=== PATIENT | male | born 1980 | race Caucasian/White ===

== ENCOUNTER 2021-02-08 16:06 | Emergency (ER) | payer OTHER, SELFPAY ==
--- NOTE | 2021-02-08 16:00 | RT.EKG_ITS ---
APPROVED REPORT Exam: Resting ECG Reason for Exam: dizziness Patient Location: E HR:74 bpm ECG Measurements Heart Rate 74 AXIS MT 171 P 20 QRSd 134 QRS -68 QT 411 T -29 QTc 457 Conclusion Sinus rhythm...normal P axis, V-rate 60- 99 RBBB and LAFB...QRSd >120mS, axis(-40,240). Sinus. RBBB. No STEMI. I have reviewed and interpreted ECG and agree with software generated interpretation.
[2021-02-08 16:13] VITALS: BP 136/91; PULSE 72; RESP 18; O2SAT 98
[2021-02-08 16:41] LABS: Abs Immature Grans 0.01 10^3/uL (0.0-0.06); Absolute Basophil Count 0.02 10^3/uL (0.0-0.2); Absolute Eosinophil Count 0.05 10^3/uL (0.0-0.7); Absolute Monocyte Count 0.33 10^3/uL (0.1-0.8); Absolute Neutrophil Count 4.06 10^3/uL (1.2-6.7); Basophils % 0.3; Eosinophils % 0.8; HCT 43.4 % (40.0-50.0); HGB 14.7 g/dL (13.5-17.5); Immature Grans % 0.2; Lymphocytes % 25.1; MCH 30.3 pg (27.0-33.0); MCHC 33.9 % (32.0-36.0); MCV 89.5 fL (80-95); MPV 9.5 fL (8.0-11.0); Monocytes % 5.5; Neutrophils % 68.1; Nucleated RBC 0 %; Platelet Count 259 10^3/uL (130-400); RBC 4.85 10^6/uL (4.36-5.78); RDW 12.9 % (11.8-14.1); RDW-SD 42.7 fL; WBC 5.97 10^3/uL (4.4-10.8)
[2021-02-08 16:47] VITALS: RESP 16
[2021-02-08] MEDS: Meclizine 25 MG TAB PO (16:47)
[2021-02-08] MEDS: Normal Saline 1,000 ML 1000 ML IV (16:47)
--- NOTE | 2021-02-08 16:53 | W.ED.GENAD ---
Discharge Plan Disposition Patient Disposition: HOME Condition: Improving Discharge Details Clinical Impression: Vertigo Primary Care Provider: Unknown,Unknown ED Provider: Dawn Self Home Meds and New Rx's Prescriptions: New meclizine 25 mg tablet 25 mg PO TID PRNQty: 10 RF: 0 Discharge Instructions Instructions: Vertigo (ED) Additional Instructions: continue meclizine if needed for dizziness present to ED for new or worsening symptoms Referrals: Unknown,Unknown [Primary Care Provider] - (pcp ora) Discharge Data Discharge Date/Time-TO BE ENTERED AT DEPARTURE: 02/08/21 18:38 Medical Decision Making patient presents with sudden onset of dizziness, visual disturbance non specific and tongue numbness. denies similar history. Medical Records Medical records reviewed: Yes I reviewed the patient's medical records. Imaging Data Radiologic Study: Imaging: CT Scan Radiologist's impression: Exam(s) PROCEDURE INFORMATION: Exam: CT Angiography Head With Contrast, Arteriography Exam date and time: 02/08/2021 4:45 PM Age: 40 years old Clinical indication: Other: Dizziness, tongue numb, visual disturbance TECHNIQUE: Imaging protocol: Computed tomography angiography of the head with contrast. Exam focused on the arteries. 3D rendering (Not supervised by radiologist): MIP and/or 3D reconstructed images were created by the technologist. Contrast material: OMNIPAQUE 350; Contrast volume: 100 ml; Contrast route: INTRAVENOUS (IV); COMPARISON: No relevant prior studies available. FINDINGS: ANTERIOR CIRCULATION: Right internal carotid artery: Unremarkable. Intracranial segment is patent with no significant stenosis. No aneurysm. Right middle cerebral artery: Unremarkable. No occlusion or significant stenosis. No aneurysm. Right anterior cerebral artery: Unremarkable. No occlusion or significant stenosis. No aneurysm. Left internal carotid artery: Unremarkable. Intracranial segment is patent with no significant stenosis. No aneurysm. Left middle cerebral artery: Unremarkable. No occlusion or significant stenosis. No aneurysm. Left anterior cerebral artery: Unremarkable. No occlusion or significant stenosis. No aneurysm. POSTERIOR CIRCULATION: Right vertebral artery: Unremarkable. No occlusion or significant stenosis. No aneurysm. Left vertebral artery: Unremarkable. No occlusion or significant stenosis. No aneurysm. Basilar artery: Unremarkable. No occlusion or significant stenosis. No aneurysm. Right posterior cerebral artery: Unremarkable. No occlusion or significant stenosis. No aneurysm. Left posterior cerebral artery: Unremarkable. No occlusion or significant stenosis. No aneurysm. Brain: No definite mass, mass effect, or midline shift. Cerebral ventricles: No ventriculomegaly. Bones/joints: Unremarkable. No acute fracture. Soft tissues: Unremarkable. IMPRESSION: No evidence for acute intracranial vascular abnormality. No central occlusion. PROCEDURE INFORMATION: Exam: CT Angiography Neck With Contrast Exam date and time: 02/08/2021 4:45 PM Age: 40 years old Clinical indication: Other: Dizziness, tongue numb, visual disturbance TECHNIQUE: Imaging protocol: Computed tomography angiography of the neck with contrast. 3D rendering (Not supervised by radiologist): MIP and/or 3D reconstructed images were created by the technologist. Contrast material: OMNIPAQUE 350; Contrast volume: 100 ml; Contrast route: INTRAVENOUS (IV); COMPARISON: No relevant prior studies available. FINDINGS: Right common carotid artery: No stenosis. No dissection or occlusion. Right internal carotid artery: No stenosis of the extracranial segment. No dissection or occlusion. Right external carotid artery: No occlusion or stenosis of the origin. Left common carotid artery: No stenosis. No dissection or occlusion. Left internal carotid artery: No stenosis of the extracranial segment. No dissection or occlusion. Left external carotid artery: No occlusion or stenosis of the origin. Right vertebral artery: No stenosis. No dissection or occlusion. Left vertebral artery: No stenosis. No dissection or occlusion. Soft tissues: Normal. No significant soft tissue swelling. Bones/joints: No acute fracture. IMPRESSION: No evidence for hemodynamically significant stenosis. No dissection or occlusion. The REFERENCES: NASCET CRITERIA. The degree of internal carotid artery stenosis is based on NASCET criteria. Normal is no stenosis. Mild is less than 50% stenosis. Moderate is 50-69% stenosis. Severe is 70% to 99% stenosis. Total occlusion is no detectable patent lumen. Dictated and Authenticated by: Orquidea Kim MD. Ordering:SARAH Seymour MD Lab Data Lab results reviewed: Yes I reviewed the patient's lab results. Labs: Laboratory Results - last 24 hr 02/08/21 02/08/21 02/08/21 16:26 16:30 16:30 WBC 5.97 RBC 4.85 Hgb 14.7 Hct 43.4 MCV 89.5 MCH 30.3 MCHC 33.9 RDW 12.9 Plt Count 259 MPV 9.5 Immature Gran % 0.2 Neutrophils % 68.1 Lymphocytes % 25.1 Monocytes % 5.5 Eosinophils % 0.8 Basophils % 0.3 Nucleated RBC % 0 Absolute Neutrophils 4.06 Absolute Lymphocytes 1.50 Absolute Monocytes 0.33 Absolute Eosinophils 0.05 Absolute Basophils 0.02 Sodium 137 Potassium 3.6 Chloride 102 Carbon Dioxide 29.4 Anion Gap 5.6 BUN 19 H Creatinine 1.2 Estimated GFR/1.73 m2 >= 60.00 Glucose 113 H Calcium 8.6 Magnesium 2.2 Total Bilirubin 0.3 AST 16 ALT 28 Alkaline Phosphatase 56 Troponin I Cancelled Total Protein 7.5 Albumin 4.1 02/08/21 16:30 WBC RBC Hgb Hct MCV MCH MCHC RDW Plt Count MPV Immature Gran % Neutrophils % Lymphocytes % Monocytes % Eosinophils % Basophils % Nucleated RBC % Absolute Neutrophils Absolute Lymphocytes Absolute Monocytes Absolute Eosinophils Absolute Basophils Sodium Potassium Chloride Carbon Dioxide Anion Gap BUN Creatinine Estimated GFR/1.73 m2 Glucose Calcium Magnesium Total Bilirubin AST ALT Alkaline Phosphatase Troponin I < 0.05 Total Protein Albumin HPI General Date/Time Provider Initiated Documentation: 02/08/21 16:09. Limitations to Documentation: no limitations. Information obtained by: patient. HPI Narrative: while driving up from [place] developed sudden onset of dizziness, visual disturbance and tongue numbness, prompting him to stop driving as he felt unsafe to drive. His symptoms improved some and he proceeded on. They stopped to eat and after eating a subway sandwich and driving again his symptoms worsened again. he denies chest pain, shortness of breath, nausea or diaphoresis, he had no confusion, unilateral weakness or other c/o. He has had no similar episode. he states he has been in his usual state of health with no recent illness. He saw his pcp yesterday for longstanding left sided chest pain that worsens when he lies on it. he reports rib xray were negative. Related Data Home Medications Medication Instructions Recorded Confirmed meclizine 25 mg PO TID PRN #10 tab 02/08/21 Previous Rx's Medication Instructions Recorded meclizine 25 mg PO TID PRN #10 tab 02/08/21 Allergies Allergy/AdvReac Type Severity Reaction Status Date / Time No Known Allergies Allergy Unverified 02/08/21 16:19 General Stated Complaint: Dizzy/Sync JANETH: 3 Review of Systems All systems reviewed & are unremarkable except as noted in HPI and below PFSH Active Problem List (Updated 02/08/21 @ 18:18 by Dawn Self NP) Vertigo (Acute) Social History Smoking/Tobacco Use Status: Never Smoking risk assessment performed?: Yes Alcohol Intake: current Alcohol Intake frequency: a few times a month Drug use: Never Substance use type: does not use Do you feel safe at home: Yes Do you feel safe in your relationship?: Yes Exam Const General: cooperative, healthy appearing, comfortable, no acute distress, well developed and well groomed Nutritional Appearance: average body habitus Orientation: alert, awake and oriented x3 HENMT Head: normal to inspection, normocephalic and atraumatic Ears: hearing grossly normal bilaterally General nose exam: external nose normal Face and sinus: normal facial exam Mouth: oral mucosae normal and tongue normal Eyes General: appearance normal, both eyes and all related structures Pupils: PERRL EOM: EOM intact bilaterally Resp Effort & Inspection: normal respiratory effort Auscultation: clear to auscultation bilaterally Cardio Rate: regular rate Rhythm: regular rhythm GI Inspection: normal to inspection Palpation: soft Auscultation: normal bowel sounds Skin General skin exam: no rashes or lesions noted Neuro General: patient alert, patient awake, patient oriented x3, gait normal, tone normal, moves all extremities, no meningeal signs and no focal motor deficits Cranial Nerves: PERRL, EOM intact bilaterally, no nystagmus and tongue midline Cognition: normal cognition Speech: speech normal Coordination: [id number] test normal, Romberg test normal, Does not sway with eyes open and rapid alternating movement UE normal Course Vital Signs Vital signs: Vital Signs Pulse 72 02/08/21 16:13 Respiratory Rate 18 02/08/21 16:13 Blood Pressure 136/91 H 02/08/21 16:13 Pulse Oximetry 98 02/08/21 16:13 Pulse 72 02/08/21 16:13 Respiratory Rate 16 02/08/21 16:47 Respiratory Effort Non-Labored 02/08/21 16:47 Respiratory Depth Normal 02/08/21 16:47 Respiratory Pattern Normal 02/08/21 16:47 Blood Pressure 136/91 H 02/08/21 16:13 Blood Pressure Position Sitting 02/08/21 16:13 Pulse Oximetry 98 02/08/21 16:13 Oxygen Delivery Method Room Air 02/08/21 16:13 Oxygen Flow Rate 0 02/08/21 16:13 Lab/Test Results Lab/Test Results: Laboratory Tests Range/Units 02/08/21 02/08/21 16:26 16:30 WBC (4.4-10.8) 10^3/uL 5.97 RBC (4.36-5.78) 10^6/uL 4.85 Hgb (13.5-17.5) g/dL 14.7 Hct (40.0-50.0) % 43.4 MCV (80-95) fL 89.5 MCH (27.0-33.0) pg 30.3 MCHC (32.0-36.0) % 33.9 RDW (11.8-14.1) % 12.9 Plt Count (130-400) 10^3/uL 259 MPV (8.0-11.0) fL 9.5 Immature Gran % 0.2 Neutrophils % 68.1 Lymphocytes % 25.1 Monocytes % 5.5 Eosinophils % 0.8 Basophils % 0.3 Nucleated RBC % % 0 Absolute Neutrophils (1.2-6.7) 10^3/uL 4.06 Absolute Lymphocytes (1.2-3.4) 10^3/uL 1.50 Absolute Monocytes (0.1-0.8) 10^3/uL 0.33 Absolute Eosinophils (0.0-0.7) 10^3/uL 0.05 Absolute Basophils (0.0-0.2) 10^3/uL 0.02 Troponin I Cancelled PAWSS Have you Been Recently Intoxicated or Drunk Within the Last 30 days?: No Have you Ever Experienced Previous Episodes of Alcohol Withdrawal?: No Have you ever Experienced Withdrawal Seizures?: No Have you ever Experienced Delirium Tremens(DT)s?: No Have you ever undergone Alcohol Rehabilitation Treatment (i.e, inpt ot outpatient treatment programs)?: No Have you ever Experienced Blackouts?: No Have you ever Combined Alcohol with other Downers within the last 90 days?: No Result: 0
[2021-02-08 17:06] LABS: ALT 28 U/L (16-63); AST 16 U/L (15-37); Albumin 4.1 g/dL (3.4-5.0); Alkaline Phosphatase 56 U/L (46-116); Anion Gap 5.6 mmol/L (3-11); BUN 19 mg/dL (7-18); Bilirubin, Total 0.3 mg/dL (0.2-1.0); CO2 29.4 mmol/L (21.0-32.0); CREATININE 1.2 mg/dL (0.70-1.30); Calcium 8.6 mg/dL (8.5-10.1); Chloride 102 mmol/L (98-107); Glucose 113 mg/dL (74-106); Magnesium 2.2 mg/dL (1.8-2.4); Potassium 3.6 mmol/L (3.5-5.1); Sodium 137 mmol/L (136-145); Total Protein 7.5 g/dL (6.4-8.2)
[2021-02-08 17:18] LABS: Troponin I < 0.05 ng/mL (<0.06)
--- NOTE | 2021-02-08 17:30 | DI.CT_ITS ---
Exam(s) CT BRAIN NECK CTA EXAM: CT BRAIN NECK CTA CLINICAL HISTORY: dizziness, tongue numb, visual disturbance. TECHNIQUE: Imaging Protocol: Axial CT angiography was performed with multi-slice acquisition and mu lti-planar and/or 3D reconstructions. CONTRAST MATERIAL: Intravenous: Omnipaque 350 Contrast volume:100 mL COMPARISON: No exams were available for comparison FINDINGS: CT Head W/O and W: Ventricles and Extra axial spaces: Normal in size and morphology for the patient's age. Hemorrhage: None. Cerebral parenchyma: Normal. Midline shift: None. Brainstem/Cerebellum: Normal. Calvarium: Normal. Visualized Paranasal sinuses/Mastoids: Clear. Soft Tissues: Unremarkable. Enhancement: Unremarkable. CTA Neck W: Common Carotid: Right: No dissection, occlusion or significant stenosis. Left: No dissection, occlusion or significant stenosis. External Carotid: Right: No occlusion or significant stenosis. Left: No occlusion or significant stenosis. Internal Carotid: Right: No dissection, occlusion or significant stenosis. Left: No dissection, occlusion or significant stenosis. Vertebral Artery: Right: No dissection, occlusion or significant stenosis. Left: No dissection, occlusion or significant stenosis. Lung Apices: Normal. Bones: Within normal limits for the patient's age. Soft Tissues: Normal. Thyroid gland: Unremarkable. CTA Brain W: Internal Carotid Arteries: Normal. Anterior Cerebral Arteries: Right: No aneurysm, occlusion or significant stenosis. Left: No aneurysm, occlusion or significant stenosis. Middle Cerebral Arteries: Right: No aneurysm, occlusion or significant stenosis. Left: No aneurysm, occlusion or significant stenosis. Posterior Cerebral Arteries: Right: No aneurysm, occlusion or significant stenosis. Left: No aneurysm, occlusion or significant stenosis. Vertebral Arteries: Right: No aneurysm, occlusion or significant stenosis. Left: No aneurysm, occlusion or significant stenosis. Basilar Artery: No aneurysm, occlusion or significant stenosis. IMPRESSION: 1. No large vessel occlusion or significant stenosis on the CT angiography of the head. 2. No acute intracranial process. 3. No occlusion or significant stenosis on the CT angiography of the neck. RADIATION DOSE DELIVERED: 2,064.08mGy.cm Total DLP DATA REPOSITORY: All CT scans at this facility are submitted to the National Radiology Data Registry (NRDR) Dose Index Registry (DIR) with the [employer] (ACR). RADIATION OPTIMIZATION: All CT scans at this facility use at least one of these dose optimization te chniques: automated exposure control; mA and/or kV adjustment per patient size (includes targeted exa ms where dose is matched to clinical indication); or iterative reconstruction.
[2021-02-08] MEDS: Omnipaque 350 MG/ML 100 ML BTL IJ (17:37)
[2021-02-08] MEDS: Normal Saline Flush 10 ML SYR IVP (17:37)
--- NOTE | 2021-02-08 18:06 | DI.VRAD_ITS ---
PROCEDURE INFORMATION: Exam: CT Angiography Head With Contrast, Arteriography Exam date and time: 02/08/2021 4:45 PM Age: 40 years old Clinical indication: Other: Dizziness, tongue numb, visual disturbance TECHNIQUE: Imaging protocol: Computed tomography angiography of the head with contrast. Exam focused on the arteries. 3D rendering (Not supervised by radiologist): MIP and/or 3D reconstructed images were created by the technologist. Contrast material: OMNIPAQUE 350; Contrast volume: 100 ml; Contrast route: INTRAVENOUS (IV); COMPARISON: No relevant prior studies available. FINDINGS: ANTERIOR CIRCULATION: Right internal carotid artery: Unremarkable. Intracranial segment is patent with no significant stenosis. No aneurysm. Right middle cerebral artery: Unremarkable. No occlusion or significant stenosis. No aneurysm. Right anterior cerebral artery: Unremarkable. No occlusion or significant stenosis. No aneurysm. Left internal carotid artery: Unremarkable. Intracranial segment is patent with no significant stenosis. No aneurysm. Left middle cerebral artery: Unremarkable. No occlusion or significant stenosis. No aneurysm. Left anterior cerebral artery: Unremarkable. No occlusion or significant stenosis. No aneurysm. POSTERIOR CIRCULATION: Right vertebral artery: Unremarkable. No occlusion or significant stenosis. No aneurysm. Left vertebral artery: Unremarkable. No occlusion or significant stenosis. No aneurysm. Basilar artery: Unremarkable. No occlusion or significant stenosis. No aneurysm. Right posterior cerebral artery: Unremarkable. No occlusion or significant stenosis. No aneurysm. Left posterior cerebral artery: Unremarkable. No occlusion or significant stenosis. No aneurysm. Brain: No definite mass, mass effect, or midline shift. Cerebral ventricles: No ventriculomegaly. Bones/joints: Unremarkable. No acute fracture. Soft tissues: Unremarkable. IMPRESSION: No evidence for acute intracranial vascular abnormality. No central occlusion. PROCEDURE INFORMATION: Exam: CT Angiography Neck With Contrast Exam date and time: 02/08/2021 4:45 PM Age: 40 years old Clinical indication: Other: Dizziness, tongue numb, visual disturbance TECHNIQUE: Imaging protocol: Computed tomography angiography of the neck with contrast. 3D rendering (Not supervised by radiologist): MIP and/or 3D reconstructed images were created by the technologist. Contrast material: OMNIPAQUE 350; Contrast volume: 100 ml; Contrast route: INTRAVENOUS (IV); COMPARISON: No relevant prior studies available. FINDINGS: Right common carotid artery: No stenosis. No dissection or occlusion. Right internal carotid artery: No stenosis of the extracranial segment. No dissection or occlusion. Right external carotid artery: No occlusion or stenosis of the origin. Left common carotid artery: No stenosis. No dissection or occlusion. Left internal carotid artery: No stenosis of the extracranial segment. No dissection or occlusion. Left external carotid artery: No occlusion or stenosis of the origin. Right vertebral artery: No stenosis. No dissection or occlusion. Left vertebral artery: No stenosis. No dissection or occlusion. Soft tissues: Normal. No significant soft tissue swelling. Bones/joints: No acute fracture. IMPRESSION: No evidence for hemodynamically significant stenosis. No dissection or occlusion. The REFERENCES: NASCET CRITERIA. The degree of internal carotid artery stenosis is based on NASCET criteria. Normal is no stenosis. Mild is less than 50% stenosis. Moderate is 50-69% stenosis. Severe is 70% to 99% stenosis. Total occlusion is no detectable patent lumen. Dictated and Authenticated by: Orquidea Kim MD. Ordering:SARAH Seymour MD
[2021-02-08 18:36] VITALS: BP 147/102; PULSE 54; TEMP 36.4; O2SAT 100
== END 2021-02-08 18:38 | disposition home or self-care (01) ==
PROVIDERS: Emergency Provider Nurse Practitioner Acute Care
DX: R42 Dizziness and giddiness (principal); H53.8 Other visual disturbances; R20.0 Anesthesia of skin
CPT/HCPCS: 36415; 70496; 70498; 80053; 93005; 96360; 99285; 83735; 84484; 85025; 93010; 99284; J3490